=== PATIENT | female | born 1935 | race Caucasian/White ===

== ENCOUNTER 2020-11-06 21:18 | Inpatient (IN) ==
[2020-11-06] MEDS ORDERED: ONDANSETRON 4 MG/2 ML VIAL IV STA (22:01)
[2020-11-06] MEDS ORDERED: methylPREDNISolone SOD SUC 125 MG/2 ML VIAL IV STA (22:01)
[2020-11-06] MEDS ORDERED: FUROSEMIDE 100 MG/10 ML VIAL IV STA (22:01)
[2020-11-06 22:12] LABS: Hematocrit 36.1 VOL% (35.7-47.0); Hemoglobin 11.4 GM/DL (12.0-16.0); Immature Granulocytes Absolute 0.15 #; Lymphocytes % 6.5 % (21.3-54.2); Mean Corpuscular HGB Conc 31.6 GM/DL (32-36); Mean Corpuscular Volume 100.3 FL (87-102); Mean Platelet Volume 13.4 FL (9.6-12.0); Monocytes % 7.7 % (1.7-12.7); Neutrophils % 84.8 % (38.7-73.9); Platelet Count 110 T/CUMM (130-400); Red Cell Distribution Width 15.5 % (9.3-17.3); White Blood Count 14.8 T/CUMM (4-12)
[2020-11-06 22:19] LABS: INR 1.1; PT Patient Result 11.9 SECS (9.8-11.9)
[2020-11-06 22:24] LABS: Bilirubin,Total 0.6 MG/DL (0.2-1.0); Calcium 7.5 MG/DL (8.5-10.1); Osmolality,Calculated 305.8 MOS/KG (273-304); Potassium 4.5 MMOL/L (3.5-5.1); Total Protein 6.2 G/DL (6.4-8.3)
[2020-11-06] MEDS ORDERED: PIPERACILLIN/TAZOBACTAM 3,375 MG in SODIUM CHLORIDE 0.9% 100 ML IV STA (22:31)
[2020-11-06 23:32] LABS: Bilirubin,Urine Negative (Negative); Blood, Urine Negative (Negative); Glucose,Urine (UA) Negative (Negative); Hyaline Casts,Urine 1 /LPF (0-3); Ketones,Urine Negative (Negative); Nitrite,Urine Negative (Negative); Protein,Urine Negative; Urine Appearance CLEAR (Clear); Urine Color Yellow (Yellow); Urine Specific Gravity 1.014 (1.001-1.035); Urine Urobilinogen < 2.0 EU/DL (0.2-1.0); WBC,Urine <1 /HPF (0-6)
[2020-11-06] MEDS ORDERED: ENOXAPARIN 60 MG/0.6 ML SYRINGE SUBCUT SCH (23:45)
[2020-11-06] MEDS ORDERED: hydrALAZINE 20 MG/1 ML VIAL IV PRN (23:53)
[2020-11-06] MEDS ORDERED: DEXTROSE 50% 25 GM/50 ML VIAL IV PRN ×2 (23:53)
[2020-11-06] MEDS ORDERED: ALUMINUM/MAGNES/SIMETH MAX STR 30 ML UDCUP PO PRN (23:53)
[2020-11-06] MEDS ORDERED: GLUCAGON 1 MG VIAL IM PRN ×2 (23:53)
[2020-11-06] MEDS ORDERED: NICOTINE 21 MG/24 HR PATCH TRANSDERM PRN (23:53)
[2020-11-06] MEDS ORDERED: diphenhydrAMINE CAP 25 MG CAPSULE PO PRN (23:53)
[2020-11-06] MEDS ORDERED: guaiFENesin/DM ER 600-30 MG TABLET PO PRN (23:53)
[2020-11-06] MEDS ORDERED: ONDANSETRON 4 MG/2 ML VIAL IV PRN (23:53)
[2020-11-06] MEDS ORDERED: ZALEPLON 5 MG CAPSULE PO PRN (23:53)
[2020-11-07] MEDS: AZITHROMYCIN 250 MG TABLET PO SCH ×2 (02:22→21:18)
[2020-11-07 05:38] LABS: Hematocrit 28.9 VOL% (35.7-47.0); Hemoglobin 9.5 GM/DL (12.0-16.0); Immature Granulocytes % 0.8 %; Immature Granulocytes Absolute 0.09 #; Lymphocytes # 0.2 10*3/uL (1.4-4.0); Lymphocytes % 2.2 % (21.3-54.2); Mean Corpuscular HGB Conc 32.9 GM/DL (32-36); Mean Platelet Volume 13.7 FL (9.6-12.0); Monocytes % 2.1 % (1.7-12.7); Neutrophils % 94.9 % (38.7-73.9); Platelet Count 83 T/CUMM (130-400); Red Blood Count 2.95 MC/CUMM (3.8-5.5); Red Cell Distribution Width 15.7 % (9.3-17.3); White Blood Count 10.6 T/CUMM (4-12)
[2020-11-07 05:50] LABS: Calcium 7.4 MG/DL (8.5-10.1); Osmolality,Calculated 304.1 MOS/KG (273-304); Potassium 4.9 MMOL/L (3.5-5.1)
[2020-11-07 06:02] LABS: Hypochromasia 1+; Lymphocytes 2 % (20-55); Microcytosis 1+; Ovalocytes Slight; Platelet Estimate Decreased; Segmented Neutrophils 97 % (50-85); Total Cells Counted 100
[2020-11-07] MEDS: cefTRIAXone 1,000 MG in SYRINGE 1 EACH IV SCH (06:42)
[2020-11-07] MEDS: SODIUM CHLORIDE 0.9% 1,000 ML IV SCH (06:42)
[2020-11-07] MEDS: INSULIN LISPRO 100 UNIT/ML SUBCUT SCH ×4 (08:23→21:19)
[2020-11-07] MEDS: rOPINIRole 1 MG TABLET PO SCH (08:50)
[2020-11-07] MEDS: ASPIRIN EC 81 MG TABLET PO SCH (08:50)
[2020-11-07] MEDS: BUDESONIDE/FORMOTEROL 160-4.5 INHALER 6 GM INH SCH ×2 (08:51→21:19)
[2020-11-07] MEDS: APIXABAN 2.5 MG TABLET PO SCH ×2 (08:51→21:18)
[2020-11-07] MEDS: LEVOTHYROXINE 100 MCG TABLET PO SCH (08:51)
[2020-11-07] MEDS: ATORVASTATIN 20 MG TABLET PO SCH (08:51)
[2020-11-07] MEDS: allopurinoL 300 MG TABLET PO SCH (08:51)
[2020-11-07] MEDS: ISOSORBIDE MONONITRATE 30 MG TABLET PO SCH (08:51)
[2020-11-07] MEDS: PANTOPRAZOLE 40 MG TABLET PO SCH (08:51)
[2020-11-07] MEDS: CLOPIDOGREL 75 MG TABLET PO SCH (08:51)
[2020-11-07] MEDS: GABAPENTIN 600 MG TABLET PO SCH ×2 (08:51→21:18)
[2020-11-07] MEDS ORDERED: FUROSEMIDE 40 MG TABLET PO SCH (09:00)
[2020-11-07] MEDS: MENTHOL/ZINC OXIDE OINT 71 GM JAR TOP SCH ×2 (12:21→21:24)
[2020-11-07] MEDS: CHOLECALCIFEROL 400 UNIT TABLET PO SCH (21:18)
[2020-11-08] MEDS: cefTRIAXone 1,000 MG in SYRINGE 1 EACH IV SCH (05:46)
[2020-11-08] MEDS: SODIUM CHLORIDE 0.9% 1,000 ML IV SCH ×2 (05:47→15:24)
[2020-11-08 05:49] LABS: Basophils % 0.1 % (0.0-0.8); Hematocrit 27.7 VOL% (35.7-47.0); Hemoglobin 9.2 GM/DL (12.0-16.0); Immature Granulocytes % 0.5 %; Immature Granulocytes Absolute 0.06 #; Lymphocytes # 0.5 10*3/uL (1.4-4.0); Lymphocytes % 4.5 % (21.3-54.2); Mean Corpuscular HGB Conc 33.2 GM/DL (32-36); Mean Corpuscular Volume 97.5 FL (87-102); Mean Platelet Volume 13.7 FL (9.6-12.0); Monocytes % 3.8 % (1.7-12.7); Neutrophils % 91.1 % (38.7-73.9); Red Blood Count 2.84 MC/CUMM (3.8-5.5); Red Cell Distribution Width 15.4 % (9.3-17.3); White Blood Count 11.6 T/CUMM (4-12)
[2020-11-08 05:53] LABS: Platelet Count 86 T/CUMM (130-400)
[2020-11-08 06:04] LABS: Calcium 7.8 MG/DL (8.5-10.1); Osmolality,Calculated 303.8 MOS/KG (273-304)
[2020-11-08 06:54] LABS: Hypochromasia 1+; Lymphocytes 2 % (20-55); Microcytosis 1+; Ovalocytes Slight; Segmented Neutrophils 97 % (50-85); Tear Drop Cells Slight; Total Cells Counted 100
[2020-11-08 06:55] LABS: Platelet Estimate Decreased
[2020-11-08] MEDS: INSULIN LISPRO 100 UNIT/ML SUBCUT SCH ×4 (08:50→21:09)
[2020-11-08] MEDS: PANTOPRAZOLE 40 MG TABLET PO SCH (08:51)
[2020-11-08] MEDS: ASPIRIN EC 81 MG TABLET PO SCH (08:51)
[2020-11-08] MEDS: CHOLECALCIFEROL 400 UNIT TABLET PO SCH (08:51)
[2020-11-08] MEDS: rOPINIRole 1 MG TABLET PO SCH (08:51)
[2020-11-08] MEDS: ISOSORBIDE MONONITRATE 30 MG TABLET PO SCH (08:51)
[2020-11-08] MEDS: ZINC SULFATE 220 MG CAPSULE PO SCH (08:51)
[2020-11-08] MEDS: CLOPIDOGREL 75 MG TABLET PO SCH (08:51)
[2020-11-08] MEDS: allopurinoL 300 MG TABLET PO SCH (08:52)
[2020-11-08] MEDS: GABAPENTIN 600 MG TABLET PO SCH ×2 (08:52→21:10)
[2020-11-08] MEDS: ASCORBIC ACID 500 MG TABLET PO SCH (08:52)
[2020-11-08] MEDS: BUDESONIDE/FORMOTEROL 160-4.5 INHALER 6 GM INH SCH ×2 (08:52→21:09)
[2020-11-08] MEDS: LEVOTHYROXINE 100 MCG TABLET PO SCH (08:52)
[2020-11-08] MEDS: APIXABAN 2.5 MG TABLET PO SCH ×2 (08:52→21:10)
[2020-11-08] MEDS: MENTHOL/ZINC OXIDE OINT 71 GM JAR TOP SCH ×3 (08:52→21:09)
[2020-11-08] MEDS: ATORVASTATIN 20 MG TABLET PO SCH (08:52)
[2020-11-08] MEDS: calcitrioL 0.25 MCG CAPSULE PO SCH (12:33)
[2020-11-08] MEDS: CALCIUM (CARBONATE)/VITAMIN D 500 MG-200 UNIT TABLET PO SCH ×2 (16:06→21:10)
[2020-11-08] MEDS: AZITHROMYCIN 250 MG TABLET PO SCH (21:10)
[2020-11-09] MEDS: cefTRIAXone 1,000 MG in SYRINGE 1 EACH IV SCH (06:00)
[2020-11-09] MEDS: INSULIN LISPRO 100 UNIT/ML SUBCUT SCH ×4 (09:02→21:17)
[2020-11-09] MEDS: CLOPIDOGREL 75 MG TABLET PO SCH (09:28)
[2020-11-09] MEDS: ZINC SULFATE 220 MG CAPSULE PO SCH (09:28)
[2020-11-09] MEDS: MENTHOL/ZINC OXIDE OINT 71 GM JAR TOP SCH ×2 (09:28→21:16)
[2020-11-09] MEDS: ASPIRIN EC 81 MG TABLET PO SCH (09:28)
[2020-11-09] MEDS: rOPINIRole 1 MG TABLET PO SCH (09:28)
[2020-11-09] MEDS: BUDESONIDE/FORMOTEROL 160-4.5 INHALER 6 GM INH SCH ×2 (09:29→21:16)
[2020-11-09] MEDS: calcitrioL 0.25 MCG CAPSULE PO SCH (09:29)
[2020-11-09] MEDS: allopurinoL 300 MG TABLET PO SCH (09:29)
[2020-11-09] MEDS: ASCORBIC ACID 500 MG TABLET PO SCH (09:29)
[2020-11-09] MEDS: ATORVASTATIN 20 MG TABLET PO SCH (09:29)
[2020-11-09] MEDS: ISOSORBIDE MONONITRATE 30 MG TABLET PO SCH (09:29)
[2020-11-09] MEDS: PANTOPRAZOLE 40 MG TABLET PO SCH (09:29)
[2020-11-09] MEDS: APIXABAN 2.5 MG TABLET PO SCH ×2 (09:30→21:16)
[2020-11-09] MEDS: LEVOTHYROXINE 100 MCG TABLET PO SCH (09:30)
[2020-11-09] MEDS: CALCIUM (CARBONATE)/VITAMIN D 500 MG-200 UNIT TABLET PO SCH ×2 (09:30→21:16)
[2020-11-09] MEDS: GABAPENTIN 600 MG TABLET PO SCH ×2 (09:30→21:16)
[2020-11-09] MEDS: SODIUM CHLORIDE 0.9% 1,000 ML IV SCH ×2 (09:33→15:54)
[2020-11-09] MEDS: AZITHROMYCIN 250 MG TABLET PO SCH (21:16)
[2020-11-10] MEDS: cefTRIAXone 1,000 MG in SYRINGE 1 EACH IV SCH (05:28)
[2020-11-10 05:56] LABS: Basophils % 0.1 % (0.0-0.8); Hematocrit 26.1 VOL% (35.7-47.0); Hemoglobin 8.8 GM/DL (12.0-16.0); Immature Granulocytes % 0.7 %; Immature Granulocytes Absolute 0.06 #; Lymphocytes % 11.3 % (21.3-54.2); Mean Corpuscular HGB Conc 33.7 GM/DL (32-36); Mean Corpuscular Volume 98.9 FL (87-102); Mean Platelet Volume 13.4 FL (9.6-12.0); Monocytes % 6.8 % (1.7-12.7); Neutrophils % 81.1 % (38.7-73.9); Red Blood Count 2.64 MC/CUMM (3.8-5.5); Red Cell Distribution Width 16.1 % (9.3-17.3)
[2020-11-10 06:04] LABS: Platelet Count 78 T/CUMM (130-400)
[2020-11-10 06:17] LABS: Calcium 7.9 MG/DL (8.5-10.1); Hypochromasia 1+; Microcytosis 1+; Osmolality,Calculated 302.4 MOS/KG (273-304); Ovalocytes Few; Platelet Estimate Decreased; Potassium 4.5 MMOL/L (3.5-5.1)
[2020-11-10] MEDS: INSULIN LISPRO 100 UNIT/ML SUBCUT SCH ×4 (07:44→21:27)
[2020-11-10] MEDS: CLOPIDOGREL 75 MG TABLET PO SCH (09:46)
[2020-11-10] MEDS: LEVOTHYROXINE 100 MCG TABLET PO SCH (09:46)
[2020-11-10] MEDS: ZINC SULFATE 220 MG CAPSULE PO SCH (09:46)
[2020-11-10] MEDS: ISOSORBIDE MONONITRATE 30 MG TABLET PO SCH (09:46)
[2020-11-10] MEDS: PANTOPRAZOLE 40 MG TABLET PO SCH (09:46)
[2020-11-10] MEDS: GABAPENTIN 600 MG TABLET PO SCH ×2 (09:46→21:27)
[2020-11-10] MEDS: APIXABAN 2.5 MG TABLET PO SCH ×2 (09:46→21:27)
[2020-11-10] MEDS: allopurinoL 300 MG TABLET PO SCH (09:46)
[2020-11-10] MEDS: ASCORBIC ACID 500 MG TABLET PO SCH (09:47)
[2020-11-10] MEDS: ASPIRIN EC 81 MG TABLET PO SCH (09:47)
[2020-11-10] MEDS: CALCIUM (CARBONATE)/VITAMIN D 500 MG-200 UNIT TABLET PO SCH ×2 (09:47→21:27)
[2020-11-10] MEDS: ATORVASTATIN 20 MG TABLET PO SCH (09:47)
[2020-11-10] MEDS: MAGNESIUM HYDROXIDE SUSP 30 ML UDCUP PO PRN (09:53)
[2020-11-10] MEDS: calcitrioL 0.25 MCG CAPSULE PO SCH (09:53)
[2020-11-10] MEDS: rOPINIRole 1 MG TABLET PO SCH (09:53)
[2020-11-10] MEDS: BUDESONIDE/FORMOTEROL 160-4.5 INHALER 6 GM INH SCH ×2 (09:59→21:28)
[2020-11-10] MEDS: MENTHOL/ZINC OXIDE OINT 71 GM JAR TOP SCH ×2 (09:59→21:27)
[2020-11-10] MEDS: ACETAMINOPHEN 325 MG TABLET PO PRN (16:19)
[2020-11-10] MEDS: BISACODYL 5 MG TABLET PO PRN (17:47)
[2020-11-10] MEDS: AZITHROMYCIN 250 MG TABLET PO SCH (21:27)
[2020-11-11] MEDS: MAGNESIUM HYDROXIDE SUSP 30 ML UDCUP PO PRN (04:09)
[2020-11-11] MEDS: cefTRIAXone 1,000 MG in SYRINGE 1 EACH IV SCH (05:39)
[2020-11-11] MEDS: rOPINIRole 1 MG TABLET PO SCH (09:22)
[2020-11-11] MEDS: ZINC SULFATE 220 MG CAPSULE PO SCH (09:22)
[2020-11-11] MEDS: ASCORBIC ACID 500 MG TABLET PO SCH (09:22)
[2020-11-11] MEDS: PANTOPRAZOLE 40 MG TABLET PO SCH (09:22)
[2020-11-11] MEDS: LEVOTHYROXINE 100 MCG TABLET PO SCH (09:22)
[2020-11-11] MEDS: CLOPIDOGREL 75 MG TABLET PO SCH (09:22)
[2020-11-11] MEDS: APIXABAN 2.5 MG TABLET PO SCH ×2 (09:22→20:38)
[2020-11-11] MEDS: ASPIRIN EC 81 MG TABLET PO SCH (09:23)
[2020-11-11] MEDS: GABAPENTIN 600 MG TABLET PO SCH ×2 (09:23→20:37)
[2020-11-11] MEDS: MENTHOL/ZINC OXIDE OINT 71 GM JAR TOP SCH ×2 (09:23→20:38)
[2020-11-11] MEDS: CALCIUM (CARBONATE)/VITAMIN D 500 MG-200 UNIT TABLET PO SCH ×2 (09:23→20:37)
[2020-11-11] MEDS: allopurinoL 300 MG TABLET PO SCH (09:23)
[2020-11-11] MEDS: ATORVASTATIN 20 MG TABLET PO SCH (09:23)
[2020-11-11] MEDS: ISOSORBIDE MONONITRATE 30 MG TABLET PO SCH (09:23)
[2020-11-11] MEDS: BUDESONIDE/FORMOTEROL 160-4.5 INHALER 6 GM INH SCH ×2 (09:23→20:38)
[2020-11-11] MEDS: calcitrioL 0.25 MCG CAPSULE PO SCH (09:23)
[2020-11-11] MEDS: INSULIN LISPRO 100 UNIT/ML SUBCUT SCH ×4 (09:25→20:38)
[2020-11-11] MEDS: ceFAZolin 2,000 MG in PREMIX 1 EACH IV SCH ×2 (09:39→16:35)
[2020-11-11] MEDS: ACETAMINOPHEN 325 MG TABLET PO PRN ×2 (16:36→20:37)
[2020-11-12] MEDS: ceFAZolin 2,000 MG in PREMIX 1 EACH IV SCH ×3 (00:50→17:35)
[2020-11-12 05:21] LABS: Basophils % 0.1 % (0.0-0.8); Hematocrit 26.7 VOL% (35.7-47.0); Hemoglobin 8.7 GM/DL (12.0-16.0); Immature Granulocytes % 0.6 %; Immature Granulocytes Absolute 0.07 #; Lymphocytes # 0.9 10*3/uL (1.4-4.0); Lymphocytes % 7.2 % (21.3-54.2); Mean Corpuscular HGB Conc 32.6 GM/DL (32-36); Mean Corpuscular Volume 100.8 FL (87-102); Mean Platelet Volume 13.2 FL (9.6-12.0); Monocytes % 5.3 % (1.7-12.7); Neutrophils % 86.8 % (38.7-73.9); Red Blood Count 2.65 MC/CUMM (3.8-5.5); Red Cell Distribution Width 16.4 % (9.3-17.3); White Blood Count 12.1 T/CUMM (4-12)
[2020-11-12 05:31] LABS: Platelet Count 90 T/CUMM (130-400)
[2020-11-12 05:34] LABS: Osmolality,Calculated 290.7 MOS/KG (273-304); Potassium 4.9 MMOL/L (3.5-5.1)
[2020-11-12 05:45] LABS: Anisocytosis 1+; Hypochromasia 2+; Microcytosis 1+; Ovalocytes Slight; Platelet Estimate Decreased
[2020-11-12] MEDS: INSULIN LISPRO 100 UNIT/ML SUBCUT SCH ×4 (08:35→22:08)
[2020-11-12] MEDS: ASCORBIC ACID 500 MG TABLET PO SCH (08:46)
[2020-11-12] MEDS: CLOPIDOGREL 75 MG TABLET PO SCH (08:46)
[2020-11-12] MEDS: ATORVASTATIN 20 MG TABLET PO SCH (08:46)
[2020-11-12] MEDS: LEVOTHYROXINE 100 MCG TABLET PO SCH (08:46)
[2020-11-12] MEDS: CALCIUM (CARBONATE)/VITAMIN D 500 MG-200 UNIT TABLET PO SCH ×2 (08:46→22:08)
[2020-11-12] MEDS: GABAPENTIN 600 MG TABLET PO SCH ×2 (08:46→22:08)
[2020-11-12] MEDS: calcitrioL 0.25 MCG CAPSULE PO SCH (08:46)
[2020-11-12] MEDS: ISOSORBIDE MONONITRATE 30 MG TABLET PO SCH (08:47)
[2020-11-12] MEDS: ZINC SULFATE 220 MG CAPSULE PO SCH (08:47)
[2020-11-12] MEDS: APIXABAN 2.5 MG TABLET PO SCH ×2 (08:47→22:07)
[2020-11-12] MEDS: ASPIRIN EC 81 MG TABLET PO SCH (08:47)
[2020-11-12] MEDS: MENTHOL/ZINC OXIDE OINT 71 GM JAR TOP SCH ×2 (08:47→22:08)
[2020-11-12] MEDS: PANTOPRAZOLE 40 MG TABLET PO SCH (08:47)
[2020-11-12] MEDS: allopurinoL 300 MG TABLET PO SCH (08:47)
[2020-11-12] MEDS: rOPINIRole 1 MG TABLET PO SCH (08:48)
[2020-11-12] MEDS: BUDESONIDE/FORMOTEROL 160-4.5 INHALER 6 GM INH SCH ×2 (08:48→22:09)
[2020-11-12] MEDS ORDERED: LACTULOSE 20 GM/30 ML UDCUP PO PRN (15:11)
[2020-11-12 17:05] LABS: Cancer Antigen 19-9 86.1 U/ML (0-35)
[2020-11-12 17:33] LABS: Carcinoembryonic Antigen 10.3 NG/ML (0.0-5.0)
[2020-11-12] MEDS: DOCUSATE SODIUM 100 MG/10 ML UDCUP PO SCH (22:08)
[2020-11-13] MEDS: ceFAZolin 2,000 MG in PREMIX 1 EACH IV SCH ×2 (01:54→09:50)
[2020-11-13 04:16] LABS: Hematocrit 28.2 VOL% (35.7-47.0); Hemoglobin 9.3 GM/DL (12.0-16.0); Immature Granulocytes % 0.5 %; Immature Granulocytes Absolute 0.05 #; Lymphocytes # 0.9 10*3/uL (1.4-4.0); Lymphocytes % 8.3 % (21.3-54.2); Mean Corpuscular Volume 98.9 FL (87-102); Mean Platelet Volume 13.4 FL (9.6-12.0); Monocytes % 5.4 % (1.7-12.7); Neutrophils % 85.8 % (38.7-73.9); Red Blood Count 2.85 MC/CUMM (3.8-5.5); Red Cell Distribution Width 16.3 % (9.3-17.3); White Blood Count 10.7 T/CUMM (4-12)
[2020-11-13 04:20] LABS: Platelet Count 64 T/CUMM (130-400)
[2020-11-13 04:38] LABS: Hypochromasia 1+; Microcytosis 1+; Ovalocytes Few; Platelet Estimate Decreased
[2020-11-13 05:34] LABS: Calcium 8.2 MG/DL (8.5-10.1); Osmolality,Calculated 294.3 MOS/KG (273-304); Potassium 5.1 MMOL/L (3.5-5.1)
[2020-11-13] MEDS: LEVOTHYROXINE 100 MCG TABLET PO SCH (09:49)
[2020-11-13] MEDS: ASCORBIC ACID 500 MG TABLET PO SCH (09:49)
[2020-11-13] MEDS: BISACODYL 5 MG TABLET PO PRN (09:49)
[2020-11-13] MEDS: calcitrioL 0.25 MCG CAPSULE PO SCH (09:49)
[2020-11-13] MEDS: GABAPENTIN 600 MG TABLET PO SCH (09:50)
[2020-11-13] MEDS: allopurinoL 300 MG TABLET PO SCH (09:50)
[2020-11-13] MEDS: ISOSORBIDE MONONITRATE 30 MG TABLET PO SCH (09:50)
[2020-11-13] MEDS: ATORVASTATIN 20 MG TABLET PO SCH (09:50)
[2020-11-13] MEDS: PANTOPRAZOLE 40 MG TABLET PO SCH (09:50)
[2020-11-13] MEDS: APIXABAN 2.5 MG TABLET PO SCH (09:50)
[2020-11-13] MEDS: DOCUSATE SODIUM 100 MG/10 ML UDCUP PO SCH (09:50)
[2020-11-13] MEDS: ASPIRIN EC 81 MG TABLET PO SCH (09:50)
[2020-11-13] MEDS: CLOPIDOGREL 75 MG TABLET PO SCH (09:50)
[2020-11-13] MEDS: CALCIUM (CARBONATE)/VITAMIN D 500 MG-200 UNIT TABLET PO SCH (09:50)
[2020-11-13] MEDS: rOPINIRole 1 MG TABLET PO SCH (09:52)
[2020-11-13] MEDS: ZINC SULFATE 220 MG CAPSULE PO SCH (09:52)
[2020-11-13] MEDS: BUDESONIDE/FORMOTEROL 160-4.5 INHALER 6 GM INH SCH (09:52)
[2020-11-13] MEDS: MENTHOL/ZINC OXIDE OINT 71 GM JAR TOP SCH (09:52)
[2020-11-13] MEDS: INSULIN LISPRO 100 UNIT/ML SUBCUT SCH (10:57)
[2020-11-13 12:28] VITALS: BP 113/64
== END 2020-11-13 16:32 | disposition swing bed (61) | DRG 871 ==
LOC: EDUNIT# → EDBD → N.ED 21:18 → N.EDINP 23:53 → N.TELES 11-07 01:31
PROVIDERS: ADMIT Internal Medicine; ATTEND Internal Medicine

== ENCOUNTER 2021-02-07 01:05 | Inpatient (IN) ==
[2021-02-07] MEDS ORDERED: SODIUM CHLORIDE 0.9% 1,000 ML IV PRN (02:55)
[2021-02-07 03:12] LABS: Immature Granulocytes % 0.4 %; Immature Granulocytes Absolute 0.02 #; Lymphocytes # 1.6 10*3/uL (1.4-4.0); Lymphocytes % 31.5 % (21.3-54.2); Mean Corpuscular HGB Conc 28.9 GM/DL (32-36); Mean Corpuscular Volume 120.5 FL (87-102); Monocytes % 8.6 % (1.7-12.7); Neutrophils % 59.5 % (38.7-73.9); Platelet Count 151 T/CUMM (130-400); Red Blood Count 1.32 MC/CUMM (3.8-5.5)
[2021-02-07 03:25] LABS: Hematocrit 15.9 VOL% (35.7-47.0); Hemoglobin 4.6 GM/DL (12.0-16.0)
[2021-02-07] MEDS ORDERED: ALBUTEROL 2.5 MG/3 ML NEB RESP TX PRN (03:39)
[2021-02-07] MEDS ORDERED: GLUCAGON 1 MG VIAL IM PRN (03:58)
[2021-02-07] MEDS: LACTATED RINGERS 1,000 ML IV SCH ×3 (03:58→21:30)
[2021-02-07] MEDS ORDERED: DEXTROSE 50% 25 GM/50 ML VIAL IV PRN (03:58)
[2021-02-07] MEDS: PANTOPRAZOLE INJ 200 MG in SODIUM CHLORIDE 0.9% 250 ML IV SCH (04:50)
[2021-02-07 05:59] LABS: Calcium 8.1 MG/DL (8.5-10.1); Potassium 4.9 MMOL/L (3.5-5.1)
[2021-02-07 06:07] LABS: Anisocytosis 1+; Macrocytosis Slight; Microcytosis 1+
[2021-02-07 06:08] LABS: Platelet Estimate Adequate; Schistocytes 1+
[2021-02-07 06:28] LABS: Bacteria,Urine Occasional /HPF (Few); Bilirubin,Urine Negative (Negative); Blood, Urine Negative (Negative); Glucose,Urine (UA) Negative (Negative); Ketones,Urine Negative (Negative); Nitrite,Urine Negative (Negative); Protein,Urine Negative; RBC,Urine 1 /HPF (0-4); Urine Appearance CLEAR (Clear); Urine Color Straw (Yellow); Urine Urobilinogen < 2.0 EU/DL (0.2-1.0); WBC,Urine 4 /HPF (0-6)
[2021-02-07 06:53] LABS: PT Patient Result 11.6 SECS (9.8-11.9)
[2021-02-07] MEDS ORDERED: rOPINIRole 1 MG TABLET PO SCH (09:00)
[2021-02-07] MEDS ORDERED: LEVOTHYROXINE 75 MCG TABLET PO SCH (09:00)
[2021-02-07] MEDS: INSULIN LISPRO 100 UNIT/ML SUBCUT SCH ×4 (09:35→23:30)
[2021-02-07] MEDS: calcitrioL 0.25 MCG CAPSULE PO SCH (10:19)
[2021-02-07] MEDS: ATORVASTATIN 20 MG TABLET PO SCH (10:19)
[2021-02-07] MEDS: BUDESONIDE/FORMOTEROL 160-4.5 INHALER 6 GM INH SCH ×2 (10:20→21:05)
[2021-02-07] MEDS: allopurinoL 300 MG TABLET PO SCH (10:21)
[2021-02-07] MEDS ORDERED: FUROSEMIDE 20 MG/2 ML VIAL IV ONE (10:25)
[2021-02-07 15:58] LABS: Hematocrit 25.4 VOL% (35.7-47.0)
[2021-02-07 16:08] LABS: Hemoglobin 8.3 GM/DL (12.0-16.0)
[2021-02-07 21:49] LABS: Hematocrit 25.2 VOL% (35.7-47.0)
[2021-02-08] MEDS: LACTATED RINGERS 1,000 ML IV SCH ×3 (04:44→21:04)
[2021-02-08] MEDS: PANTOPRAZOLE INJ 200 MG in SODIUM CHLORIDE 0.9% 250 ML IV SCH (04:44)
[2021-02-08 06:20] LABS: Hematocrit 23.8 VOL% (35.7-47.0); Hemoglobin 7.7 GM/DL (12.0-16.0); Immature Granulocytes % 0.5 %; Immature Granulocytes Absolute 0.02 #; Lymphocytes # 1.5 10*3/uL (1.4-4.0); Lymphocytes % 36.3 % (21.3-54.2); Mean Corpuscular HGB Conc 32.4 GM/DL (32-36); Mean Corpuscular Volume 103.5 FL (87-102); Mean Platelet Volume 11.1 FL (9.6-12.0); Monocytes % 9.4 % (1.7-12.7); Neutrophils % 53.8 % (38.7-73.9); Platelet Count 125 T/CUMM (130-400); White Blood Count 4.1 T/CUMM (4-12)
[2021-02-08] MEDS: INSULIN LISPRO 100 UNIT/ML SUBCUT SCH ×3 (06:28→18:26)
[2021-02-08 06:41] LABS: Osmolality,Calculated 296.1 MOS/KG (273-304); Potassium 5.4 MMOL/L (3.5-5.1)
[2021-02-08] MEDS ORDERED: FUROSEMIDE 20 MG/2 ML VIAL IV ONE (08:26)
[2021-02-08] MEDS: ATORVASTATIN 20 MG TABLET PO SCH (09:00)
[2021-02-08] MEDS: BUDESONIDE/FORMOTEROL 160-4.5 INHALER 6 GM INH SCH ×2 (09:00→21:04)
[2021-02-08] MEDS: rOPINIRole 0.25 MG TABLET PO SCH (09:00)
[2021-02-08] MEDS: calcitrioL 0.25 MCG CAPSULE PO SCH (09:00)
[2021-02-08] MEDS: LEVOTHYROXINE 88 MCG TABLET PO SCH (09:00)
[2021-02-08] MEDS: allopurinoL 300 MG TABLET PO SCH (09:00)
[2021-02-08] MEDS ORDERED: SODIUM POLYSTYRENE SULFATE 15 GM/60 ML BOTTLE PO ONE (10:55)
[2021-02-08 19:32] LABS: Hematocrit 30.1 VOL% (35.7-47.0); Hemoglobin 10.1 GM/DL (12.0-16.0)
[2021-02-09] MEDS: LACTATED RINGERS 1,000 ML IV SCH ×3 (05:04→21:57)
[2021-02-09 05:15] LABS: Basophils % 0.2 % (0.0-0.8); Hematocrit 29.5 VOL% (35.7-47.0); Hemoglobin 9.6 GM/DL (12.0-16.0); Immature Granulocytes % 0.4 %; Immature Granulocytes Absolute 0.02 #; Lymphocytes # 1.4 10*3/uL (1.4-4.0); Lymphocytes % 29.4 % (21.3-54.2); Mean Corpuscular HGB Conc 32.5 GM/DL (32-36); Mean Corpuscular Volume 100.7 FL (87-102); Mean Platelet Volume 11.3 FL (9.6-12.0); Monocytes % 11.1 % (1.7-12.7); Neutrophils % 58.9 % (38.7-73.9); Platelet Count 134 T/CUMM (130-400); Red Blood Count 2.93 MC/CUMM (3.8-5.5); Red Cell Distribution Width 20.8 % (9.3-17.3); White Blood Count 4.8 T/CUMM (4-12)
[2021-02-09 05:41] LABS: Albumin 2.6 G/DL (3.4-5.0); Bilirubin,Direct 0.21 MG/DL (0.0-0.20); Bilirubin,Indirect 0.5 MG/DL (0.0-1.0); Bilirubin,Total 0.7 MG/DL (0.2-1.0); Potassium 4.7 MMOL/L (3.5-5.1); Total Protein 4.7 G/DL (6.4-8.2)
[2021-02-09] MEDS: PANTOPRAZOLE INJ 200 MG in SODIUM CHLORIDE 0.9% 250 ML IV SCH (06:00)
[2021-02-09] MEDS: INSULIN LISPRO 100 UNIT/ML SUBCUT SCH ×4 (06:08→18:10)
[2021-02-09] MEDS: rOPINIRole 0.25 MG TABLET PO SCH (08:59)
[2021-02-09] MEDS: calcitrioL 0.25 MCG CAPSULE PO SCH (09:00)
[2021-02-09] MEDS: ATORVASTATIN 20 MG TABLET PO SCH (09:00)
[2021-02-09] MEDS: LEVOTHYROXINE 88 MCG TABLET PO SCH (09:00)
[2021-02-09] MEDS: allopurinoL 300 MG TABLET PO SCH (09:00)
[2021-02-09] MEDS: BUDESONIDE/FORMOTEROL 160-4.5 INHALER 6 GM INH SCH ×2 (09:01→21:58)
[2021-02-09] MEDS: PANTOPRAZOLE 40 MG TABLET PO SCH (21:58)
[2021-02-10] MEDS: INSULIN LISPRO 100 UNIT/ML SUBCUT SCH ×4 (01:04→18:23)
[2021-02-10] MEDS: LACTATED RINGERS 1,000 ML IV SCH ×4 (06:05→21:39)
[2021-02-10 10:51] LABS: Hematocrit 31.2 VOL% (35.7-47.0); Hemoglobin 9.9 GM/DL (12.0-16.0)
[2021-02-10] MEDS ORDERED: propofoL 200 MG/20 ML VIAL IV ONE (13:05)
[2021-02-10] MEDS ORDERED: LIDOCAINE 2% 5 ML VIAL ONE (13:05)
[2021-02-10] MEDS: BUDESONIDE/FORMOTEROL 160-4.5 INHALER 6 GM INH SCH ×2 (14:47→21:39)
[2021-02-10] MEDS: PANTOPRAZOLE 40 MG TABLET PO SCH ×2 (14:47→21:39)
[2021-02-10] MEDS: LEVOTHYROXINE 88 MCG TABLET PO SCH (14:49)
[2021-02-10] MEDS: rOPINIRole 0.25 MG TABLET PO SCH (14:55)
[2021-02-10] MEDS: allopurinoL 300 MG TABLET PO SCH (14:55)
[2021-02-10] MEDS: ATORVASTATIN 20 MG TABLET PO SCH (14:55)
[2021-02-10] MEDS: calcitrioL 0.25 MCG CAPSULE PO SCH (14:56)
[2021-02-11] MEDS: INSULIN LISPRO 100 UNIT/ML SUBCUT SCH ×3 (01:45→12:02)
[2021-02-11] MEDS: LACTATED RINGERS 1,000 ML IV SCH ×3 (05:02→11:12)
[2021-02-11 05:15] LABS: Basophils % 0.2 % (0.0-0.8); Hematocrit 31.5 VOL% (35.7-47.0); Hemoglobin 10.2 GM/DL (12.0-16.0); Immature Granulocytes % 0.4 %; Immature Granulocytes Absolute 0.02 #; Lymphocytes # 1.5 10*3/uL (1.4-4.0); Lymphocytes % 28.7 % (21.3-54.2); Mean Corpuscular HGB Conc 32.4 GM/DL (32-36); Mean Corpuscular Volume 102.3 FL (87-102); Monocytes % 12.1 % (1.7-12.7); Neutrophils % 58.6 % (38.7-73.9); Platelet Count 123 T/CUMM (130-400); Red Blood Count 3.08 MC/CUMM (3.8-5.5); Red Cell Distribution Width 19.5 % (9.3-17.3); White Blood Count 5.2 T/CUMM (4-12)
[2021-02-11 05:30] LABS: Calcium 8.3 MG/DL (8.5-10.1); Osmolality,Calculated 296.4 MOS/KG (273-304)
[2021-02-11 08:04] VITALS: BP 162/77
[2021-02-11] MEDS: PANTOPRAZOLE 40 MG TABLET PO SCH (08:44)
[2021-02-11] MEDS: allopurinoL 300 MG TABLET PO SCH (08:45)
[2021-02-11] MEDS: rOPINIRole 0.25 MG TABLET PO SCH (08:45)
[2021-02-11] MEDS: LEVOTHYROXINE 88 MCG TABLET PO SCH (08:45)
[2021-02-11] MEDS: BUDESONIDE/FORMOTEROL 160-4.5 INHALER 6 GM INH SCH (08:45)
[2021-02-11] MEDS: ATORVASTATIN 20 MG TABLET PO SCH (08:45)
[2021-02-11] MEDS: calcitrioL 0.25 MCG CAPSULE PO SCH (08:45)
== END 2021-02-11 12:06 | disposition home health service (06) | DRG 813 ==
LOC: N.CC 02:41 → SUATTDRO 02:41 → N.TELES 02-08 15:19
PROVIDERS: ADMIT Internal Medicine; ATTEND Internal Medicine Geriatric Medicine

== ENCOUNTER 2021-03-27 16:39 | Inpatient (IN) ==
[2021-03-27] MEDS ORDERED: SODIUM CHLORIDE 0.9% 500 ML IV STA (16:55)
[2021-03-27 17:28] LABS: Basophils % 0.2 % (0.0-0.8); Hematocrit 29.3 VOL% (35.7-47.0); Hemoglobin 9.1 GM/DL (12.0-16.0); Immature Granulocytes % 1.1 %; Immature Granulocytes Absolute 0.06 #; Lymphocytes # 0.5 10*3/uL (1.4-4.0); Lymphocytes % 8.3 % (21.3-54.2); Mean Corpuscular HGB Conc 31.1 GM/DL (32-36); Mean Corpuscular Volume 101.4 FL (87-102); Mean Platelet Volume 10.3 FL (9.6-12.0); Monocytes % 7.9 % (1.7-12.7); Neutrophils % 82.5 % (38.7-73.9); Platelet Count 244 T/CUMM (130-400); Red Blood Count 2.89 MC/CUMM (3.8-5.5); Red Cell Distribution Width 15.4 % (9.3-17.3); White Blood Count 5.7 T/CUMM (4-12)
[2021-03-27 17:55] LABS: Alanine Aminotransferase 12 U/L (13-56); Albumin 2.5 G/DL (3.4-5.0); Alkaline Phosphatase 111 U/L (45-117); Aspartate Amino Transferase 21 U/L (0-37); Bilirubin,Total < 0.39 MG/DL (0.2-1.0); Blood Urea Nitrogen 40 MG/DL (7-18); Calcium 8.6 MG/DL (8.5-10.1); Carbon Dioxide 24 MMOL/L (21-32); Estimated Glom Filtration Rate 15 ML/MIN; Glucose 122 MG/DL (74-106); Osmolality,Calculated 287.5 MOS/KG (273-304); Potassium 5.2 MMOL/L (3.5-5.1); Sodium 139 MMOL/L (136-145); Total Protein 6.8 G/DL (6.4-8.2)
[2021-03-27 18:13] LABS: Bacteria,Urine Moderate /HPF (Few); Bilirubin,Urine Negative (Negative); Blood, Urine Moderate mg/dL (Negative); Glucose,Urine (UA) Negative (Negative); Hyaline Casts,Urine 1 /LPF (0-3); Ketones,Urine Negative (Negative); Mucus,Urine Occasional /LPF (Occasional); Nitrite,Urine Negative (Negative); Protein,Urine Negative; Squamous Epithelial Cell,Urine Occasional /HPF (0-10); Urine Appearance CLOUDY (Clear); Urine Color Yellow (Yellow); Urine Specific Gravity 1.008 (1.001-1.035); Urine Urobilinogen < 2.0 EU/DL (0.2-1.0)
[2021-03-27] MEDS ORDERED: DOCUSATE SODIUM 100 MG CAPSULE PO PRN (19:51)
[2021-03-27] MEDS ORDERED: ZALEPLON 5 MG CAPSULE PO PRN (19:51)
[2021-03-27] MEDS ORDERED: hydrALAZINE 20 MG/1 ML VIAL IV PRN (19:51)
[2021-03-27] MEDS ORDERED: guaiFENesin/DM ER 600-30 MG TABLET PO PRN (19:51)
[2021-03-27] MEDS ORDERED: DEXTROSE 50% 25 GM/50 ML VIAL IV PRN ×2 (19:51)
[2021-03-27] MEDS ORDERED: NICOTINE 21 MG/24 HR PATCH TRANSDERM PRN (19:51)
[2021-03-27] MEDS ORDERED: diphenhydrAMINE CAP 25 MG CAPSULE PO PRN (19:51)
[2021-03-27] MEDS ORDERED: ONDANSETRON 4 MG/2 ML VIAL IV PRN (19:51)
[2021-03-27] MEDS ORDERED: GLUCAGON 1 MG VIAL IM PRN ×2 (19:51)
[2021-03-27] MEDS ORDERED: ACETAMINOPHEN 325 MG TABLET PO PRN (19:51)
[2021-03-27] MEDS: PANTOPRAZOLE 40 MG VIAL IV SCH (22:58)
[2021-03-27] MEDS: INSULIN LISPRO 100 UNIT/ML SUBCUT SCH (23:02)
[2021-03-28] MEDS: SODIUM CHLORIDE 0.9% 1,000 ML IV SCH ×2 (01:04→17:54)
[2021-03-28 05:14] LABS: Basophils % 0.3 % (0.0-0.8); Hematocrit 26.6 VOL% (35.7-47.0); Hemoglobin 8.4 GM/DL (12.0-16.0); Immature Granulocytes % 0.5 %; Immature Granulocytes Absolute 0.02 #; Lymphocytes # 1.1 10*3/uL (1.4-4.0); Lymphocytes % 28.3 % (21.3-54.2); Mean Corpuscular HGB Conc 31.6 GM/DL (32-36); Mean Corpuscular Volume 100.8 FL (87-102); Mean Platelet Volume 10.1 FL (9.6-12.0); Monocytes % 13.6 % (1.7-12.7); Neutrophils % 57.3 % (38.7-73.9); Platelet Count 210 T/CUMM (130-400); Red Blood Count 2.64 MC/CUMM (3.8-5.5); Red Cell Distribution Width 15.2 % (9.3-17.3)
[2021-03-28 05:44] LABS: Alanine Aminotransferase < 9 U/L (13-56); Albumin 2.1 G/DL (3.4-5.0); Alkaline Phosphatase 92 U/L (45-117); Aspartate Amino Transferase 14 U/L (0-37); Blood Urea Nitrogen 38 MG/DL (7-18); Calcium 8.4 MG/DL (8.5-10.1); Carbon Dioxide 23 MMOL/L (21-32); Estimated Glom Filtration Rate 21 ML/MIN; Glucose 80 MG/DL (74-106); Osmolality,Calculated 290.1 MOS/KG (273-304); Potassium 4.9 MMOL/L (3.5-5.1); Sodium 142 MMOL/L (136-145); Total Protein 5.8 G/DL (6.4-8.2)
[2021-03-28] MEDS: INSULIN LISPRO 100 UNIT/ML SUBCUT SCH ×4 (09:28→22:45)
[2021-03-28] MEDS: PANTOPRAZOLE 40 MG VIAL IV SCH ×2 (09:29→22:40)
[2021-03-28] MEDS: POLYETHYLENE GLYCOL POWDER 17 GM PACK PO SCH ×2 (15:48→22:45)
[2021-03-28] MEDS ORDERED: MAGNESIUM CITRATE 300 ML BOTTLE PO ONE (21:00)
[2021-03-29 05:28] LABS: Basophils % 0.4 % (0.0-0.8); Hematocrit 27.9 VOL% (35.7-47.0); Hemoglobin 9.1 GM/DL (12.0-16.0); Immature Granulocytes % 0.7 %; Immature Granulocytes Absolute 0.04 #; Lymphocytes # 1.3 10*3/uL (1.4-4.0); Lymphocytes % 23.3 % (21.3-54.2); Mean Corpuscular HGB Conc 32.6 GM/DL (32-36); Mean Corpuscular Volume 99.6 FL (87-102); Mean Platelet Volume 10.4 FL (9.6-12.0); Monocytes % 11.3 % (1.7-12.7); Neutrophils % 64.3 % (38.7-73.9); Platelet Count 221 T/CUMM (130-400); Red Cell Distribution Width 15.3 % (9.3-17.3); White Blood Count 5.4 T/CUMM (4-12)
[2021-03-29 05:52] LABS: Calcium 8.4 MG/DL (8.5-10.1); Potassium 5.3 MMOL/L (3.5-5.1)
[2021-03-29] MEDS: SODIUM CHLORIDE 0.9% 1,000 ML IV SCH ×2 (07:40→22:33)
[2021-03-29] MEDS: PANTOPRAZOLE 40 MG VIAL IV SCH ×2 (08:37→21:01)
[2021-03-29] MEDS: INSULIN LISPRO 100 UNIT/ML SUBCUT SCH ×4 (08:37→21:38)
[2021-03-29] MEDS: POLYETHYLENE GLYCOL POWDER 17 GM PACK PO SCH (08:38)
[2021-03-29] MEDS: BISACODYL 5 MG TABLET PO SCH ×2 (08:39→16:25)
[2021-03-29] MEDS ORDERED: POLYETHYLENE GLYCOL 3350/ELECTROLYTES 4,000 ML BOTTLE NG ONE (18:00)
[2021-03-30] MEDS: BISACODYL 5 MG TABLET PO SCH (01:05)
[2021-03-30 04:54] LABS: Basophils % 0.4 % (0.0-0.8); Hematocrit 31.3 VOL% (35.7-47.0); Hemoglobin 9.8 GM/DL (12.0-16.0); Immature Granulocytes % 0.7 %; Immature Granulocytes Absolute 0.04 #; Lymphocytes # 1.2 10*3/uL (1.4-4.0); Lymphocytes % 21.7 % (21.3-54.2); Mean Corpuscular HGB Conc 31.3 GM/DL (32-36); Mean Platelet Volume 10.2 FL (9.6-12.0); Monocytes % 11.2 % (1.7-12.7); Platelet Count 243 T/CUMM (130-400); Red Cell Distribution Width 15.6 % (9.3-17.3); White Blood Count 5.4 T/CUMM (4-12)
[2021-03-30 05:13] LABS: Calcium 8.4 MG/DL (8.5-10.1); Potassium 5.1 MMOL/L (3.5-5.1)
[2021-03-30] MEDS: PANTOPRAZOLE 40 MG VIAL IV SCH ×2 (08:58→21:12)
[2021-03-30] MEDS: INSULIN LISPRO 100 UNIT/ML SUBCUT SCH ×4 (08:58→21:12)
[2021-03-30] MEDS ORDERED: LACTATED RINGERS 1,000 ML IV SCH (09:30)
[2021-03-30 09:52] LABS: PT Patient Result 11.6 SECS (10.5-12.0)
[2021-03-30] MEDS ORDERED: SODIUM CHLORIDE 0.9% 1,000 ML IV SCH (12:00)
[2021-03-30] MEDS ORDERED: PHENYLEPHRINE 1 MG/10 ML SYRINGE IV ONE ×2 (13:58→14:23)
[2021-03-30] MEDS ORDERED: LIDOCAINE 2% 5 ML VIAL ONE (13:58)
[2021-03-30] MEDS ORDERED: propofoL 200 MG/20 ML VIAL IV ONE ×2 (13:58→14:23)
[2021-03-30 16:11] LABS: Hematocrit 33.3 VOL% (35.7-47.0); Hemoglobin 10.7 GM/DL (12.0-16.0)
[2021-03-30] MEDS: SODIUM CHLORIDE 0.9% 1,000 ML IV SCH (18:17)
[2021-03-31 05:23] LABS: Basophils % 0.2 % (0.0-0.8); Hematocrit 29.1 VOL% (35.7-47.0); Hemoglobin 9.2 GM/DL (12.0-16.0); Immature Granulocytes % 0.6 %; Immature Granulocytes Absolute 0.03 #; Lymphocytes # 1.3 10*3/uL (1.4-4.0); Lymphocytes % 24.8 % (21.3-54.2); Mean Corpuscular HGB Conc 31.6 GM/DL (32-36); Mean Corpuscular Volume 102.1 FL (87-102); Mean Platelet Volume 10.6 FL (9.6-12.0); Monocytes % 12.9 % (1.7-12.7); Neutrophils % 61.5 % (38.7-73.9); Platelet Count 216 T/CUMM (130-400); Red Blood Count 2.85 MC/CUMM (3.8-5.5); Red Cell Distribution Width 15.6 % (9.3-17.3); White Blood Count 5.1 T/CUMM (4-12)
[2021-03-31 05:36] LABS: Calcium 8.3 MG/DL (8.5-10.1); Osmolality,Calculated 289.8 MOS/KG (273-304)
[2021-03-31] MEDS: SODIUM CHLORIDE 0.9% 1,000 ML IV SCH (06:15)
[2021-03-31] MEDS: INSULIN LISPRO 100 UNIT/ML SUBCUT SCH ×2 (07:36→12:33)
[2021-03-31] MEDS: PANTOPRAZOLE 40 MG VIAL IV SCH (09:46)
[2021-03-31 12:23] VITALS: BP 128/52
== END 2021-03-31 16:15 | disposition home health service (06) | DRG 683 ==
LOC: EDUNIT# → N.ED 16:39 → N.EDINP 19:51 → SUATTDRO 19:51 → N.5E 20:29
PROVIDERS: ADMIT Emergency Medicine; ATTEND Internal Medicine

== ENCOUNTER 2022-01-30 09:12 | Inpatient (IN) ==
[2022-01-30] MEDS ORDERED: SODIUM CHLORIDE 0.9% 500 ML IV STA ×2 (09:42→10:27)
[2022-01-30 09:46] LABS: Basophils % 0.2 % (0.0-0.8); Hematocrit 34.4 VOL% (35.7-47.0); Hemoglobin 10.6 GM/DL (12.0-16.0); Immature Granulocytes % 0.5 %; Immature Granulocytes Absolute 0.07 #; Lymphocytes # 1.3 10*3/uL (1.4-4.0); Mean Corpuscular HGB Conc 30.8 GM/DL (32-36); Mean Corpuscular Volume 100.3 FL (87-102); Mean Platelet Volume 11.6 FL (9.6-12.0); Monocytes # 0.7 10*3/uL (0.11-0.8); Monocytes % 5.6 % (1.7-12.7); Neutrophils % 83.7 % (38.7-73.9); Platelet Count 248 T/CUMM (130-400); Red Blood Count 3.43 MC/CUMM (3.8-5.5); Red Cell Distribution Width 15.5 % (9.3-17.3); White Blood Count 13.2 T/CUMM (4-12)
[2022-01-30 09:58] LABS: INR 1.2; PT Patient Result 13.2 SECS (10.5-12.0)
[2022-01-30 10:11] LABS: Albumin 2.8 G/DL (3.4-5.0); Bilirubin,Total 0.6 MG/DL (0.20-1.00); Calcium 8.7 MG/DL (8.5-10.1); Osmolality,Calculated 293.1 MOS/KG (273-304); Potassium 4.6 MMOL/L (3.5-5.1); Total Protein 6.8 G/DL (6.4-8.2)
[2022-01-30 12:37] LABS: Bacteria,Urine Many /HPF (Few); RBC,Urine 16 /HPF (0-4); Squamous Epithelial Cell,Urine Occasional /HPF (0-10)
[2022-01-30 12:46] LABS: Bilirubin,Urine Negative (Negative); Blood, Urine Small mg/dL (Negative); Glucose,Urine (UA) Negative (Negative); Ketones,Urine Negative (Negative); Nitrite,Urine Negative (Negative); Protein,Urine Negative (Negative); Urine Appearance Cloudy (Clear); Urine Color Yellow (Yellow); Urine Specific Gravity 1.015 (1.001-1.035); Urine Urobilinogen 0.2 eU/dL (<2.0); Urine pH 5.5 (4.5-8.0)
[2022-01-30] MEDS ORDERED: cefTRIAXone 1,000 MG in SODIUM CHLORIDE 0.9% 100 ML IV STA (12:48)
[2022-01-30] MEDS ORDERED: DEXTROSE 10% 250 ML BAG IV PRN (13:57)
[2022-01-30] MEDS ORDERED: GLUCAGON 1 MG VIAL IM PRN (13:57)
[2022-01-30] MEDS ORDERED: DEXTROSE 50% 25 GM/50 ML VIAL IV PRN (14:00)
[2022-01-30] MEDS ORDERED: ONDANSETRON 4 MG/2 ML VIAL IV PRN (14:00)
[2022-01-30] MEDS ORDERED: ACETAMINOPHEN 325 MG TABLET PO PRN (14:00)
[2022-01-30] MEDS ORDERED: ALBUTEROL/IPRATROPIUM 3 ML NEB RESP TX PRN (14:00)
[2022-01-30] MEDS ORDERED: BUDESONIDE/FORMOTEROL 160-4.5 INHALER 6 GM INH PRN (15:18)
[2022-01-30] MEDS: LACTULOSE 20 GM/30 ML UDCUP PO SCH ×3 (18:20→22:17)
[2022-01-30] MEDS: allopurinoL 300 MG TABLET PO SCH (18:21)
[2022-01-30] MEDS: ASPIRIN EC 81 MG TABLET PO SCH (18:21)
[2022-01-30] MEDS: SODIUM CHLORIDE 0.9% 1,000 ML IV SCH (18:21)
[2022-01-30] MEDS: LEVOFLOXACIN INJ 250 MG/50 ML PREMIX IV SCH (18:21)
[2022-01-30] MEDS: INSULIN REGULAR 100 UNIT/ML SUBCUT SCH ×2 (18:22→22:08)
[2022-01-30] MEDS ORDERED: MIRTAZAPINE 15 MG TABLET PO SCH (21:00)
[2022-01-30] MEDS: DOCUSATE SODIUM 100 MG CAPSULE PO SCH (22:16)
[2022-01-30] MEDS: GABAPENTIN 300 MG CAPSULE PO SCH (22:16)
[2022-01-30] MEDS: APIXABAN 2.5 MG TABLET PO SCH (22:16)
[2022-01-31] MEDS: SODIUM CHLORIDE 0.9% 1,000 ML IV SCH ×2 (01:31→09:45)
[2022-01-31] MEDS: LACTULOSE 20 GM/30 ML UDCUP PO SCH ×6 (01:31→21:09)
[2022-01-31 05:05] LABS: Basophils % 0.2 % (0.0-0.8); Hematocrit 32.4 VOL% (35.7-47.0); Hemoglobin 10.2 GM/DL (12.0-16.0); Immature Granulocytes % 0.8 %; Immature Granulocytes Absolute 0.12 #; Lymphocytes # 0.8 10*3/uL (1.4-4.0); Lymphocytes % 5.3 % (21.3-54.2); Mean Corpuscular HGB Conc 31.5 GM/DL (32-36); Mean Corpuscular Volume 99.1 FL (87-102); Mean Platelet Volume 12.2 FL (9.6-12.0); Monocytes # 0.8 10*3/uL (0.11-0.8); Monocytes % 5.1 % (1.7-12.7); Neutrophils % 88.6 % (38.7-73.9); Platelet Count 201 T/CUMM (130-400); Red Blood Count 3.27 MC/CUMM (3.8-5.5); Red Cell Distribution Width 15.1 % (9.3-17.3)
[2022-01-31 05:23] LABS: Alanine Aminotransferase < 9 U/L (13-56); Albumin 2.3 G/DL (3.4-5.0); Alkaline Phosphatase 155 U/L (45-117); Aspartate Amino Transferase 16 U/L (0-37); Blood Urea Nitrogen 38 MG/DL (7-18); Calcium 8.7 MG/DL (8.5-10.1); Carbon Dioxide 23 MMOL/L (21-32); Chloride 108 MMOL/L (98-107); Estimated Glom Filtration Rate 16 ML/MIN; Glucose 120 MG/DL (74-106); Osmolality,Calculated 284.7 MOS/KG (273-304); Potassium 4.2 MMOL/L (3.5-5.1); Sodium 138 MMOL/L (136-145); Total Protein 6.5 G/DL (6.4-8.2)
[2022-01-31] MEDS: LEVOTHYROXINE 125 MCG TABLET PO SCH (06:09)
[2022-01-31] MEDS ORDERED: ISOSORBIDE MONONITRATE 30 MG TABLET PO SCH (09:00)
[2022-01-31] MEDS: INSULIN REGULAR 100 UNIT/ML SUBCUT SCH ×3 (09:38→17:13)
[2022-01-31] MEDS: sitaGLIPtin 100 MG TABLET PO SCH (09:39)
[2022-01-31] MEDS: allopurinoL 300 MG TABLET PO SCH (09:39)
[2022-01-31] MEDS: APIXABAN 2.5 MG TABLET PO SCH ×2 (09:39→21:09)
[2022-01-31] MEDS: ASPIRIN EC 81 MG TABLET PO SCH (09:39)
[2022-01-31] MEDS: GABAPENTIN 300 MG CAPSULE PO SCH (09:39)
[2022-01-31] MEDS: DOCUSATE SODIUM 100 MG CAPSULE PO SCH ×2 (09:40→21:09)
[2022-01-31] MEDS: rOPINIRole 1 MG TABLET PO SCH (09:40)
[2022-01-31] MEDS: PANTOPRAZOLE 40 MG TABLET PO SCH (09:40)
[2022-01-31] MEDS: FLUoxetine 20 MG CAPSULE PO SCH (09:41)
[2022-01-31] MEDS ORDERED: MEROPENEM 1,000 MG in SODIUM CHLORIDE 0.9% 100 ML IV SCH (11:00)
[2022-01-31] MEDS: MEROPENEM 500 MG in SODIUM CHLORIDE 0.9% 100 ML IV SCH (11:37)
[2022-01-31] MEDS ORDERED: SODIUM CHLORIDE 0.9% 500 ML IV ONE (12:28)
[2022-01-31] MEDS ORDERED: SODIUM CHLORIDE 0.9% 1,000 ML IV ONE (15:04)
[2022-01-31] MEDS: ATORVASTATIN 20 MG TABLET PO SCH (21:09)
[2022-02-01] MEDS: MEROPENEM 500 MG in SODIUM CHLORIDE 0.9% 100 ML IV SCH ×2 (00:44→10:33)
[2022-02-01] MEDS: INSULIN REGULAR 100 UNIT/ML SUBCUT SCH ×5 (00:48→20:38)
[2022-02-01] MEDS: LACTULOSE 20 GM/30 ML UDCUP PO SCH ×4 (02:00→15:15)
[2022-02-01 05:00] LABS: Basophils % 0.1 % (0.0-0.8); Hematocrit 26.8 VOL% (35.7-47.0); Hemoglobin 8.3 GM/DL (12.0-16.0); Immature Granulocytes % 0.7 %; Immature Granulocytes Absolute 0.06 #; Lymphocytes # 1.4 10*3/uL (1.4-4.0); Lymphocytes % 15.6 % (21.3-54.2); Mean Corpuscular Volume 100.4 FL (87-102); Mean Platelet Volume 11.9 FL (9.6-12.0); Monocytes # 0.7 10*3/uL (0.11-0.8); Monocytes % 7.7 % (1.7-12.7); Neutrophils % 75.9 % (38.7-73.9); Platelet Count 157 T/CUMM (130-400); Red Blood Count 2.67 MC/CUMM (3.8-5.5); Red Cell Distribution Width 15.6 % (9.3-17.3); White Blood Count 8.7 T/CUMM (4-12)
[2022-02-01 05:30] LABS: Alanine Aminotransferase < 9 U/L (13-56); Albumin 1.7 G/DL (3.4-5.0); Alkaline Phosphatase 125 U/L (45-117); Aspartate Amino Transferase 12 U/L (0-37); Blood Urea Nitrogen 38 MG/DL (7-18); Carbon Dioxide 21 MMOL/L (21-32); Chloride 116 MMOL/L (98-107); Estimated Glom Filtration Rate 16 ML/MIN; Glucose 88 MG/DL (74-106); Potassium 4.1 MMOL/L (3.5-5.1); Sodium 143 MMOL/L (136-145); Total Protein 5.4 G/DL (6.4-8.2)
[2022-02-01] MEDS: SODIUM CHLORIDE 0.9% 1,000 ML IV SCH (05:34)
[2022-02-01] MEDS: LEVOTHYROXINE 125 MCG TABLET PO SCH (07:43)
[2022-02-01] MEDS: ASPIRIN EC 81 MG TABLET PO SCH (10:15)
[2022-02-01] MEDS: DOCUSATE SODIUM 100 MG CAPSULE PO SCH ×2 (10:15→20:37)
[2022-02-01] MEDS: sitaGLIPtin 100 MG TABLET PO SCH (10:15)
[2022-02-01] MEDS: FLUoxetine 20 MG CAPSULE PO SCH (10:16)
[2022-02-01] MEDS: APIXABAN 2.5 MG TABLET PO SCH ×2 (10:16→20:37)
[2022-02-01] MEDS: allopurinoL 300 MG TABLET PO SCH (10:16)
[2022-02-01] MEDS: PANTOPRAZOLE 40 MG TABLET PO SCH (10:17)
[2022-02-01] MEDS: LEVOFLOXACIN INJ 250 MG/50 ML PREMIX IV SCH (15:16)
[2022-02-01] MEDS: ATORVASTATIN 20 MG TABLET PO SCH (20:37)
[2022-02-02 05:32] LABS: Basophils % 0.1 % (0.0-0.8); Hematocrit 28.6 VOL% (35.7-47.0); Hemoglobin 8.6 GM/DL (12.0-16.0); Immature Granulocytes % 0.4 %; Immature Granulocytes Absolute 0.03 #; Lymphocytes # 1.2 10*3/uL (1.4-4.0); Lymphocytes % 17.1 % (21.3-54.2); Mean Corpuscular HGB Conc 30.1 GM/DL (32-36); Mean Corpuscular Volume 103.2 FL (87-102); Mean Platelet Volume 12.1 FL (9.6-12.0); Monocytes # 0.7 10*3/uL (0.11-0.8); Monocytes % 9.3 % (1.7-12.7); Neutrophils % 73.1 % (38.7-73.9); Platelet Count 142 T/CUMM (130-400); Red Blood Count 2.77 MC/CUMM (3.8-5.5); Red Cell Distribution Width 15.6 % (9.3-17.3)
[2022-02-02 06:00] LABS: Alanine Aminotransferase 11 U/L (13-56); Albumin 1.8 G/DL (3.4-5.0); Alkaline Phosphatase 118 U/L (45-117); Aspartate Amino Transferase 17 U/L (0-37); Bilirubin,Total < 0.39 MG/DL (0.20-1.00); Blood Urea Nitrogen 33 MG/DL (7-18); Carbon Dioxide 17 MMOL/L (21-32); Chloride 116 MMOL/L (98-107); Estimated Glom Filtration Rate 20 ML/MIN; Glucose 82 MG/DL (74-106); Osmolality,Calculated 288.1 MOS/KG (273-304); Potassium 4.4 MMOL/L (3.5-5.1); Sodium 142 MMOL/L (136-145); Total Protein 5.3 G/DL (6.4-8.2)
[2022-02-02] MEDS: LEVOTHYROXINE 125 MCG TABLET PO SCH (07:18)
[2022-02-02] MEDS: SODIUM CHLORIDE 0.9% 1,000 ML IV SCH (08:09)
[2022-02-02] MEDS: INSULIN REGULAR 100 UNIT/ML SUBCUT SCH ×4 (08:12→20:43)
[2022-02-02] MEDS: ASPIRIN EC 81 MG TABLET PO SCH (08:56)
[2022-02-02] MEDS: FLUoxetine 20 MG CAPSULE PO SCH (08:56)
[2022-02-02] MEDS: PANTOPRAZOLE 40 MG TABLET PO SCH (08:57)
[2022-02-02] MEDS: DOCUSATE SODIUM 100 MG CAPSULE PO SCH ×2 (08:57→20:44)
[2022-02-02] MEDS: allopurinoL 300 MG TABLET PO SCH (08:57)
[2022-02-02] MEDS: sitaGLIPtin 100 MG TABLET PO SCH (08:57)
[2022-02-02] MEDS: APIXABAN 2.5 MG TABLET PO SCH ×2 (08:58→20:43)
[2022-02-02 13:10] LABS: % Iron Saturation 12.4 % (18-50)
[2022-02-02 13:37] LABS: Folate 7.6 NG/ML (5.38-24.0)
[2022-02-02] MEDS: ATORVASTATIN 20 MG TABLET PO SCH (20:43)
[2022-02-03 05:18] LABS: Basophils % 0.2 % (0.0-0.8); Hematocrit 28.7 VOL% (35.7-47.0); Hemoglobin 8.7 GM/DL (12.0-16.0); Immature Granulocytes % 0.3 %; Immature Granulocytes Absolute 0.02 #; Lymphocytes # 1.5 10*3/uL (1.4-4.0); Mean Corpuscular HGB Conc 30.3 GM/DL (32-36); Mean Corpuscular Volume 101.4 FL (87-102); Mean Platelet Volume 11.6 FL (9.6-12.0); Monocytes # 0.5 10*3/uL (0.11-0.8); Monocytes % 9.2 % (1.7-12.7); Neutrophils % 65.3 % (38.7-73.9); Platelet Count 154 T/CUMM (130-400); Red Blood Count 2.83 MC/CUMM (3.8-5.5); Red Cell Distribution Width 15.3 % (9.3-17.3); White Blood Count 5.9 T/CUMM (4-12)
[2022-02-03 05:49] LABS: Albumin 1.7 G/DL (3.4-5.0); Bilirubin,Total 0.4 MG/DL (0.20-1.00); Calcium 8.3 MG/DL (8.5-10.1); Osmolality,Calculated 282.5 MOS/KG (273-304); Potassium 4.7 MMOL/L (3.5-5.1); Total Protein 5.4 G/DL (6.4-8.2)
[2022-02-03] MEDS: LEVOTHYROXINE 125 MCG TABLET PO SCH (06:46)
[2022-02-03] MEDS: INSULIN REGULAR 100 UNIT/ML SUBCUT SCH ×4 (08:05→21:10)
[2022-02-03] MEDS: FLUoxetine 20 MG CAPSULE PO SCH (08:45)
[2022-02-03] MEDS: rOPINIRole 1 MG TABLET PO SCH (08:45)
[2022-02-03] MEDS: DOCUSATE SODIUM 100 MG CAPSULE PO SCH ×2 (08:45→21:20)
[2022-02-03] MEDS: ASPIRIN EC 81 MG TABLET PO SCH (08:45)
[2022-02-03] MEDS: sitaGLIPtin 100 MG TABLET PO SCH (08:45)
[2022-02-03] MEDS: APIXABAN 2.5 MG TABLET PO SCH ×2 (08:45→21:11)
[2022-02-03] MEDS: allopurinoL 300 MG TABLET PO SCH (08:45)
[2022-02-03] MEDS: PANTOPRAZOLE 40 MG TABLET PO SCH (08:45)
[2022-02-03] MEDS ORDERED: FERRIC GLUCONATE COMPLEX 125 MG in SODIUM CHLORIDE 0.9% 100 ML IV ONE (09:00)
[2022-02-03] MEDS: SODIUM BICARB INJ 50 MEQ in SODIUM CHLORIDE 0.45% 1,000 ML IV SCH ×2 (12:15→12:45)
[2022-02-03] MEDS: LEVOFLOXACIN INJ 250 MG/50 ML PREMIX IV SCH (14:48)
[2022-02-03] MEDS: ATORVASTATIN 20 MG TABLET PO SCH (21:11)
[2022-02-04 05:04] LABS: Basophils % 0.4 % (0.0-0.8); Hematocrit 26.2 VOL% (35.7-47.0); Hemoglobin 8.1 GM/DL (12.0-16.0); Immature Granulocytes % 0.4 %; Immature Granulocytes Absolute 0.02 #; Lymphocytes # 1.3 10*3/uL (1.4-4.0); Lymphocytes % 22.1 % (21.3-54.2); Mean Corpuscular HGB Conc 30.9 GM/DL (32-36); Mean Corpuscular Volume 101.9 FL (87-102); Mean Platelet Volume 12.4 FL (9.6-12.0); Monocytes # 0.6 10*3/uL (0.11-0.8); Monocytes % 9.7 % (1.7-12.7); Neutrophils % 67.4 % (38.7-73.9); Platelet Count 158 T/CUMM (130-400); Red Blood Count 2.57 MC/CUMM (3.8-5.5); Red Cell Distribution Width 15.2 % (9.3-17.3); White Blood Count 5.7 T/CUMM (4-12)
[2022-02-04 05:20] LABS: Alanine Aminotransferase 9 U/L (13-56); Albumin 1.8 G/DL (3.4-5.0); Alkaline Phosphatase 111 U/L (45-117); Aspartate Amino Transferase 20 U/L (0-37); Bilirubin,Total < 0.39 MG/DL (0.20-1.00); Blood Urea Nitrogen 33 MG/DL (7-18); Carbon Dioxide 22 MMOL/L (21-32); Chloride 116 MMOL/L (98-107); Estimated Glom Filtration Rate 22 ML/MIN; Glucose 98 MG/DL (74-106); Sodium 143 MMOL/L (136-145)
[2022-02-04] MEDS: LEVOTHYROXINE 125 MCG TABLET PO SCH (06:32)
[2022-02-04] MEDS: INSULIN REGULAR 100 UNIT/ML SUBCUT SCH (08:30)
[2022-02-04] MEDS: ASPIRIN EC 81 MG TABLET PO SCH (09:23)
[2022-02-04] MEDS: FLUoxetine 20 MG CAPSULE PO SCH (09:23)
[2022-02-04] MEDS: PANTOPRAZOLE 40 MG TABLET PO SCH (09:23)
[2022-02-04] MEDS: DOCUSATE SODIUM 100 MG CAPSULE PO SCH (09:24)
[2022-02-04] MEDS: APIXABAN 2.5 MG TABLET PO SCH (09:24)
[2022-02-04] MEDS: rOPINIRole 1 MG TABLET PO SCH (09:24)
[2022-02-04] MEDS: allopurinoL 300 MG TABLET PO SCH (09:24)
[2022-02-04] MEDS: sitaGLIPtin 100 MG TABLET PO SCH (09:24)
[2022-02-04 11:51] VITALS: BP 120/60
== END 2022-02-04 12:55 | disposition swing bed (61) | DRG 683 ==
LOC: EDUNIT# → EDBD → N.ED 09:12 → N.EDINP 09:12 → N.TELEN 18:56 → SUATTDRO 01-31 09:31
PROVIDERS: ADMIT Family Medicine; ATTEND Internal Medicine